=== PATIENT | male | born 1980 | race Caucasian/White ===

== ENCOUNTER 2023-03-22 19:50 | Emergency (ER) | payer OTHER, SELFPAY ==
[2023-03-22 20:11] VITALS: BP 120/71; PULSE 79; RESP 18; TEMP 36.8; O2SAT 99; BMI 27.9
--- NOTE | 2023-03-22 21:32 | ED_ITS ---
HPI - Eye Problem General Time Seen by Provider: 21:32 Date Seen: 03/22/23 Chief complaint: Eye Problems Stated complaint: Hockey stick to the R eye Time Seen by Provider: 03/22/23 21:35 Source: patient and RN notes reviewed Mode of arrival: ambulatory Limitations: no limitations History of Present Illness HPI Narrative: Seamus is a very pleasant 42-year-old male with last tetanus in 2004 who comes to the emergency room for evaluation regarding laceration over his right eye. 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 Fortunately he had no injury of the eye itself. This laceration is just below his eyebrow. On-site somebody Steri-Strips it and I must say they did a very good job. He initially had a lot of bleeding but this has since stopped. He has no headache and did not lose consciousness. He has no pain with eye movement. Related Data Home Medications Medication Instructions Recorded Confirmed No Known Home Medications 03/22/23 03/22/23 Allergies Allergy/AdvReac Type Severity Reaction Status Date / Time codeine Allergy Mild Hallucinati Verified 03/22/23 20:17 ons Review of Systems Status of ROS: Reports: 6 or more systems reviewed and unremarkable except as noted in History and below Exam Narrative: Exam Narrative: Seamus is alert and oriented no acute distress. Examination shows that he has some edema beneath his right eyebrow. Palpation in the periorbital area shows no step-offs. EOM is full with no discomfort. Pupils are equal round and reactive. The laceration itself is measuring approximately 1.8 cm. It compromises epidermis dermis and partially compromises subcutaneous tissue. It is not a through and through laceration. No foreign bodies are noted. Procedure: I removed Steri-Strips. No foreign bodies noted. This area will be cleansed. Dermabond applied in 2 layers. With good wound closure. Const: Vital Signs, click to edit/add: Vital Signs - 24 hr 03/22/23 20:11 Temperature 98.2 F Pulse Rate [Right Pulse Oximeter] 79 Respiratory Rate 18 Blood Pressure [Ri ght Upper Arm] 120/71 Pulse Oximetry 99 Oxygen Delivery Me thod Room Air Documenting provider has reviewed patient's vital signs: yes Course Vital Signs Vital signs: Initial Vital Signs Temperature 98.2 F 03/22/23 20:11 Temperature Source Temporal Artery Scan 03/22/23 20:11 Pulse Rate 79 03/22/23 20:11 Respiratory Rate 18 03/22/23 20:11 Blood Pressure 120/71 03/22/23 20:11 Blood Pressure Mean 87 03/22/23 20:11 Blood Pressure Position Sitting 03/22/23 20:11 Pulse Oximetry 99 03/22/23 20:11 Oxygen Delivery Method Room Air 03/22/23 20:11 Vital Signs Temperature 98.2 F 03/22/23 20:11 Pulse Rate 79 03/22/23 20:11 Respiratory Rate 18 03/22/23 20:11 Blood Pressure 120/71 03/22/23 20:11 Pulse Oximetry 99 03/22/23 20:11 Oxygen Delivery Method Room Air 03/22/23 20:11 Temperature 98.2 F 03/22/23 20:11 Pulse Rate 79 03/22/23 20:11 Respiratory Rate 18 03/22/23 20:11 Blood Pressure 120/71 03/22/23 20:11 Pulse Oximetry 99 03/22/23 20:11 Oxygen Delivery Method Room Air 03/22/23 20:11 MDM - Eye Problem MDM Narrative Medical decision making narrative: 1. Eyebrow laceration-Dermabond applied. Will instruct patient to leave this in place. Do not peel this off. If part of it comes away from the eye they may trim it. Watch for signs and symptoms of infection and seek medical attention for increasing redness. Expect black eye tomorrow. 2. Tetanus out of date-patient will follow-up with his primary clinic in the next 72 hours. 3. Disposition-home at this time. Return as needed. Discharge Plan Discharge Clinical Impression: Eyebrow laceration Qualifiers: Encounter type: initial encounter Laterality: right Qualified Code(s): S01.111A - Laceration without foreign body of right eyelid and periocular area, initial encounter Patient Disposition: Home, Self-Care Condition: Improved Additional Instructions: Make sure you follow-up for tetanus vaccination within the next 72 hours. The Dermabond will start to peel up probably in 4-5 days. You can take a small scissors and snip away the part that is peeling up. It should fall off in about 7 days. Monitor for infection and seek medical attention for redness, fever or chills. You will notice that you have a black eye developed over the next 24 hours. Seek medical attention for his visual changes. Return as needed. Prescriptions: No Action No Known Home Medications Follow Up/Referrals: Provider,Not a Local [Primary Care Provider] - Stand Alone Forms: [employer] Info Instructions
[2023-03-22 22:02] VITALS: BP 125/75; PULSE 74; RESP 18; TEMP 36.7; O2SAT 99
[2023-03-22 22:03] VITALS: BP 125/75; PULSE 74; RESP 18; TEMP 36.7
== END 2023-03-22 22:03 | disposition home or self-care (01) ==
PROVIDERS: Emergency Provider Family Medicine
DX: S01.111A Laceration without foreign body of right eyelid and periocular area, initial encounter (principal); W21.210A Struck by ice hockey stick, initial encounter
CPT/HCPCS: 12011; 99283